=== PATIENT | male | born 1995 | race Caucasian/White ===

== ENCOUNTER 2023-10-19 08:15 | Emergency (ER) | payer SELFPAY ==
[~2023-10-19] VITALS: Ht 175.3 cm; Wt 84.0 kg
[2023-10-19 08:22] VITALS: O2SAT 100
[2023-10-19 09:10] LABS: BASOPHILS % 0.7 % (0.0-2.0); EOSINOPHILS % 0.6 % (0.0-5.0); HEMATOCRIT. 46.5 % (42.0-52.0); HEMOGLOBIN. 15.5 g/dL (14.0-18.0); LYMPHOCYTES % 16.7 % (20.0-50.0); MEAN CORPUSCULAR HEMOGLOBIN 30.9 pg (28.0-32.0); MEAN CORPUSCULAR HGB CONC 33.4 g/dL (31.0-37.0); MEAN CORPUSCULAR VOLUME 92.4 fL (80.0-94.0); MEAN PLATELET VOLUME 7.4 fl (7.4-10.4); MONOCYTES % 7.3 % (2.0-8.0); NEUTROPHILS % 74.7 % (40.0-76.0); PLATELET 342 x1000/uL (130-400); RED BLOOD CELL COUNT 5.03 mill/uL (4.7-6.1); RED CELL DISTRIBUTION WIDTH 13.2 % (11.6-14.6); WHITE BLOOD COUNT 11.7 x1000/uL (4.5-11.0)
[2023-10-19 09:20] LABS: CHLORIDE 106 mEq/L (98-107); POTASSIUM 3.7 mEq/L (3.5-5.1); SODIUM 138 mEq/L (136-145)
[2023-10-19 09:21] LABS: CARBON DIOXIDE 26 mEq/L (21-32)
[2023-10-19 09:22] LABS: CALCIUM 10.2 mg/dL (8.7-10.4)
[2023-10-19 09:26] LABS: GLUCOSE 134 mg/dL (70-105)
[2023-10-19 09:27] LABS: UREA NITROGEN BLOOD 9 mg/dL (9-23)
[2023-10-19 09:28] LABS: ALANINE AMINOTRANSFERASE 32 IU/L (10-49); ALBUMIN 5.1 g/dL (3.2-4.8); ASPARTATE AMINOTRANSFERASE 24 IU/L (<34)
[2023-10-19 09:29] LABS: BILIRUBIN DIRECT 0.3 mg/dL (<=3.0); BILIRUBIN TOTAL 0.9 mg/dL (0.1-1.0); PROTEIN TOTAL 7.9 g/dL (6.0-8.3)
[2023-10-19] MEDS: ONDANSETRON HCL 4MG/2ML INJ IV ONE (10:26)
[2023-10-19] MEDS: SODIUM CHLORIDE 0.9% 1,000 ML IV ONE (10:26)
[2023-10-19] MEDS: PANTOPRAZOLE SODIUM 40 MG/VIAL IV ONE (10:27)
[2023-10-19] MEDS: MORPHINE SULFATE 4 MG/ML INJ (FOR IV/IM USE) IV ONE ×2 (10:27→13:06)
[2023-10-19 10:33] LABS: PROTHROMBIN TIME 10.9 sec (9.6-11.0)
[2023-10-19 13:06] VITALS: BP 149/87; PULSE 60; RESP 23
[2023-10-19] MEDS: FAMOTIDINE 20MG/2ML VIAL IV ONE (13:09)
[2023-10-19 14:24] VITALS: TEMP 98.2
[2023-10-19] MEDS: ACETAMINOPHEN 325MG TABLET PO ONE (14:24)
[2023-10-19 14:40] LABS: CLARITY URINE CLEAR (CLEAR); COLOR URINE YELLOW (YELLOW); GLUCOSE URINE NEGATIVE (NEGATIVE); KETONES URINE NEGATIVE (NEGATIVE); LEUKOCYTE ESTERASE URINE NEGATIVE (NEGATIVE); NITRITE URINE NEGATIVE (NEGATIVE); OCCULT BLOOD URINE NEGATIVE (NEGATIVE); PH URINE >=9.0 (4.5-8.0); PROTEIN URINE NEGATIVE (NEGATIVE); SPECIFIC GRAVITY URINE 1.048 (1.005-1.030); UROBILINOGEN URINE 0.2 E.U./dL (0.2-1.0)
[2023-10-19] MEDS: IOHEXOL-300 100 ML BOTTLE ONE (15:25)
[2023-10-19] MEDS ORDERED: ONDA4TAB11 PO (15:30)
[2023-10-19] MEDS ORDERED: OXYC-662 MT (15:30)
[2023-10-19] MEDS ORDERED: TAMS-11 PO (15:30)
== END 2023-10-19 16:07 | disposition home or self-care (01) ==
LOC: ER 08:23
DX: N20.0 Calculus of kidney (principal); R11.2 Nausea with vomiting, unspecified
CPT/HCPCS: 99285; 74177; 96374; 96361; 96375; 80076; 80048; 81003; 83605; 83690; 85025; 85610; 86850; 86900; 86901; 36415; 96376; Q9967; J3490; J2405; J2470; J2270; J7030